=== PATIENT | male | born 1960 | race Hispanic/Latino ===

== ENCOUNTER 2021-03-11 06:08 | Observation (INO) | payer OTHER ==
[2021-03-09 13:04] LABS: BASOPHILS % (AUTO) 0.6 % (0.0-5.0); EOSINOPHILS % (AUTO) 2.8 % (0.0-8.0); HEMATOCRIT 42.6 % (42-54); LYMPHOCYTES % (AUTO) 13.7 % (21.0-51.0); MEAN CORPUSCULAR HEMOGLOBIN 29.3 pg (27.0-33.0); MEAN CORPUSCULAR HGB CONC 33.3 g/dL (32.0-36.0); MEAN CORPUSCULAR VOLUME 87.8 fL (79-99); MONOCYTES % (AUTO) 8.2 % (3.0-13.0); NEUTROPHILS % (AUTO) 74.4 % (40.0-77.0); PLATELET COUNT (AUTO) 213 K/uL (130-400); RED BLOOD CELL COUNT(AUTO) 4.85 MIL/uL (4.50-6.20); RED CELL DISTRIBUTION WIDTH 13.7 % (11.0-15.5); WHITE BLOOD COUNT (AUTO) 6.8 K/uL (4.8-10.8)
[2021-03-09 13:12] LABS: CREATININE 1.2 mg/dL (0.5-1.5); POTASSIUM 3.9 mmol/L (3.5-5.1)
[2021-03-09 13:15] LABS: INR 1.05 (0.85-1.15); PROTHROMBIN TIME 11.4 SEC (9.6-11.6)
[2021-03-09 13:16] LABS: PARTIAL THROMBOPLASTIN TIME 29.7 SEC (26.3-35.5)
[2021-03-09 13:38] LABS: APPEARANCE,URINE Clear (CLEAR); BILIRUBIN,URINE Negative (NEGATIVE); COLOR,URINE Yellow (YELLOW); GLUCOSE, URINE (UA) Negative (NEGATIVE); KETONES,URINE Trace mg/dL (NEGATIVE); LEUKOCYTE ESTERASE ,URINE Trace (NEGATIVE); NITRATE,URINE Negative (NEGATIVE); OCCULT BLOOD,URINE Negative (NEGATIVE); PH,URINE 6.5 (5.0-8.0); PROTEIN,URINE 300 mg/dL (NEGATIVE)
[2021-03-09 13:54] LABS: BACTERIA,URINE None Seen /HPF (None Seen); MUCUS,URINE Few LPF (None Seen); RBC,URINE 0-1 /HPF (0-1); SQUAMOUS EPITHELIAL CELL,UR 0-2 /HPF (0-2); WBC,URINE 0-1 /HPF (0-1)
[2021-03-10 15:43] VITALS: BP 220/125
[2021-03-11] VITALS (25 sets, daily range): BP systolic 75–193; BP diastolic 35–125
[~2021-03-11] VITALS: Ht 182.9 cm; Wt 123.0 kg
[~2021-03-11 06:08] MED LIST: ATOR40TA69 PO; CLON1PAT TD; DOCU100C33 PO; FURO40TA5 PO; HYDR100T27 PO; LEVO25CA4 PO; LISI20TA24 PO; METO-409 PO; NIFE-39 PO; POTA20PA32 PO
[2021-03-11] MEDS: 0.9%NACL 1000ML 1,000 ML IV SCH ×3 (07:02→14:19)
[2021-03-11] MEDS ORDERED: IOHEXOL 350 MG/ML 100ML INFUS..BTL IV ONE (07:28)
[2021-03-11] MEDS ORDERED: LIDOCAINE HCL 400MG/20ML VIAL ONE (07:29)
[2021-03-11] MEDS ORDERED: IOHEXOL-350 50ML VIAL IV ONE (07:33)
[2021-03-11] MEDS ORDERED: HEPARIN 10,000 UNIT/10ML (1,000 UNIT/ML) VIAL ONE (07:33)
[2021-03-11] MEDS ORDERED: LABETALOL 20MG VIAL IV ONE (07:42)
[2021-03-11] MEDS ORDERED: NITROGLYCERIN 0.4 MG SL TAB SL ONE (07:48)
[2021-03-11] MEDS ORDERED: HYDRALAZINE 20MG/ML VIAL ONE (07:54)
[2021-03-11] MEDS ORDERED: NITROGLYCERIN 50MG/D5W 250ML 1 BOT ONE (07:57)
[2021-03-11] MEDS ORDERED: CLONIDINE HCL 0.1 MG TABLET ONE (08:03)
[2021-03-11] MEDS ORDERED: VASOPRESSIN 20 UNITS/ML 1ML VIAL ONE (08:16)
[2021-03-11] MEDS ORDERED: ENALAPRILAT DIHYDRATE 1.25 MG/ML 2ML VIAL IVP ONE (08:20)
[2021-03-11] MEDS: 0.9%NACL 10ML VIAL IVP SCH ×2 (08:30→15:46)
[2021-03-11] MEDS ORDERED: DOCUSATE SODIUM 100 MG CAP PO SCH (08:30)
[2021-03-11] MEDS: LABETALOL HCL 200 MG TABLET PO SCH ×3 (09:00→22:34)
[2021-03-11] MEDS ORDERED: ATROPINE 1MG SYG IVP ONE (10:35)
[2021-03-11] MEDS ORDERED: LISINOPRIL 20 MG TABLET PO SCH (21:00)
[2021-03-11] MEDS ORDERED: NIFEDIPINE ER 30 MG TAB PO SCH (21:00)
[2021-03-11] MEDS ORDERED: ATORVASTATIN 40 MG TABLET PO SCH (21:00)
[2021-03-11] MEDS ORDERED: KCL 20 MEQ ERTAB PO SCH (21:00)
[2021-03-11] MEDS ORDERED: LEVOTHYROXINE 25 MCG TABLET PO SCH (21:00)
[2021-03-11] MEDS ORDERED: FUROSEMIDE 40 MG TABLET PO SCH (21:00)
[2021-03-11] MEDS ORDERED: HYDRALAZINE 25MG TABLET PO SCH (21:00)
[2021-03-12 00:14] VITALS: BP 106/54
[2021-03-12 04:08] LABS: BASOPHILS % (AUTO) 0.2 % (0.0-5.0); EOSINOPHILS % (AUTO) 0.7 % (0.0-8.0); HEMATOCRIT 37.8 % (42-54); LYMPHOCYTES % (AUTO) 10.1 % (21.0-51.0); MEAN CORPUSCULAR HEMOGLOBIN 28.4 pg (27.0-33.0); MEAN CORPUSCULAR VOLUME 91.7 fL (79-99); MONOCYTES % (AUTO) 6.8 % (3.0-13.0); NEUTROPHILS % (AUTO) 81.8 % (40.0-77.0); PLATELET COUNT (AUTO) 196 K/uL (130-400); RED BLOOD CELL COUNT(AUTO) 4.12 MIL/uL (4.50-6.20); RED CELL DISTRIBUTION WIDTH 14.4 % (11.0-15.5); WHITE BLOOD COUNT (AUTO) 8.4 K/uL (4.8-10.8)
[2021-03-12 04:30] LABS: ALBUMIN 3.2 g/dL (3.5-5.0); BILIRUBIN,TOTAL 0.5 mg/dL (0.2-1.0); CREATININE 1.9 mg/dL (0.5-1.5); POTASSIUM 4.1 mmol/L (3.5-5.1); TOTAL PROTEIN, SERUM 6.1 g/dL (6.0-8.3)
[2021-03-12 04:31] VITALS: BP 147/62
[2021-03-12] MEDS: LABETALOL HCL 200 MG TABLET PO SCH (07:18)
[2021-03-12 08:07] VITALS: BP 138/57
[2021-03-12 12:00] VITALS: BP 129/73
== END 2021-03-12 13:15 | disposition home or self-care (01) ==
LOC: DAH 06:08 → DAHIP 06:09 → 2DH 14:20 → UNDODISOB 03-12 13:15
PROVIDERS: ADMIT Internal Medicine Critical Care Medicine; ATTEND Internal Medicine Critical Care Medicine
DX: I25.119 Atherosclerotic heart disease of native coronary artery with unspecified angina pectoris (principal); R00.1 Bradycardia, unspecified; I10 Essential (primary) hypertension; E66.9 Obesity, unspecified; F19.90 Other psychoactive substance use, unspecified, uncomplicated; I25.2 Old myocardial infarction; Z20.822 Contact with and (suspected) exposure to COVID-19; Z68.36 Body mass index [BMI] 36.0-36.9, adult; Z79.899 Other long term (current) drug therapy; Z85.72 Personal history of non-Hodgkin lymphomas; Z86.73 Personal history of transient ischemic attack (TIA), and cerebral infarction without residual deficits; Z91.14 Patient's other noncompliance with medication regimen; Z91.19 Patient's noncompliance with other medical treatment and regimen; Z82.49 Family history of ischemic heart disease and other diseases of the circulatory system; Z79.01 Long term (current) use of anticoagulants
CPT/HCPCS: 36415 ×2; 71045; 80048; 80053; 81001; 85025 ×2; 85610; 85730; 93458; A4215; A4216; A4221; A4222; A4223 ×3; A4606; A4657; A4663; A6260; A6402; C1894; G0378 ×29; J0360; J1644 ×2; J3490 ×4; J7030; Q9965; Q9967 ×2; 93005; J0461

== ENCOUNTER → 2021-10-19 | Outpatient (CLI) | payer OTHER ==
[~2021-10-19] MED LIST changes: -CLON1PAT TD; -METO-409 PO
== END | disposition home or self-care (01) ==
LOC: SHCH 11:22
PROVIDERS: ATTEND Internal Medicine Cardiovascular Disease
DX: I87.2 Venous insufficiency (chronic) (peripheral) (principal)
CPT/HCPCS: 93970